=== PATIENT | male | born 2000 | race Two or more races ===

== ENCOUNTER 2022-08-14 03:06 | Emergency (ER) | payer OTHER ==
[~2022-08-14] VITALS: Ht 165.1 cm; Wt 59.0 kg
[2022-08-14 04:15] VITALS: BP 125/87
--- NOTE | 2022-08-14 04:15 | NUR ---
Patient discharged to home in stable condition. Written and verbal after care instructions given. Patient verbalizes understanding of instructions. Stressed follow up or return to ER for worsening s/s. Patient is a/ox4, NAD noted. Patient is able to walk with steady gait, Patient is accompanied by [employer]
== END 2022-08-14 04:16 ==
LOC: ER 03:12
DX: J06.9 Acute upper respiratory infection, unspecified (principal); Z20.822 Contact with and (suspected) exposure to COVID-19
CPT/HCPCS: A4663